=== PATIENT | male | born 1970 | race Caucasian/White ===

== ENCOUNTER → 2019-01-13 | Outpatient (CLI) | payer OTHER ==
--- NOTE | 2019-01-19 23:12 | SP ---
DATE OF PROCEDURE: 01/13/2019 INDICATION: A 48-year-old gentleman with history of seizure on 12/06/1999. No medications. DESCRIPTION OF PROCEDURE: Routine outpatient EEG was recorded digitally. Kaygd-yc-arizi and scalp-t o-ear montages were recorded and reviewed. All impedances were measured and recorded. Cap electrode s were placed in accordance to International 10-20 system of electrode placement. FINDINGS: Symmetrically distributed background activity ranging in frequency between 8 to 10 cycles per second was seen in the awake state. Photic stimulation produces mild normal driving. Hyperventi lation elicits no epileptiform activity. No signs of ongoing electrographic seizures. No lateralize d slowing. No epileptiform activity or ongoing seizure activity were seen. When patient gets drowsy and falls asleep, background rhythm gets slightly less organized. Occasiona l vertex waves were observed. IMPRESSION: Essentially normal study. Please correlate clinically. Dictated By: ESEQUIEL WONG/ANN MARIE Conf#: [id number] DID#: [id number]
== END | disposition home or self-care (01) ==
LOC: EEG 11:27
PROVIDERS: ATTEND Family Medicine Adult Medicine
DX: G40.909 Epilepsy, unspecified, not intractable, without status epilepticus (principal)
CPT/HCPCS: 95819